=== PATIENT | female | born 1955 | race Caucasian/White ===

== ENCOUNTER → 2021-03-20 14:35 | Outpatient (CLI) | payer MEDICARE, OTHER, SELFPAY ==
[2021-03-20 17:01] LABS: Anion Gap 5 (5-15); BUN 14 mg/dL (7-18); BUN/Creat Ratio 20.4 RATIO (10-20); Calcium,Total 9.3 mg/dL (8.5-10.1); Chloride 105 mmol/L (98-107); Creatinine, Serum 0.69 mg/dL (0.55-1.02); EST Glomerular Filtration Rate 91 mL/min (>60); Est Glom Filt Rate - Afr Amer 111 mL/min (>60); Glucose 115 mg/dL (74-106); Potassium 3.9 mmol/L (3.5-5.1); Sodium Level 139 mmol/L (136-145)
== END ==
PROVIDERS: PCP Family Medicine
DX: I10 Essential (primary) hypertension (principal)
CPT/HCPCS: 36415; 80048

== ENCOUNTER 2021-05-08 10:16 | Outpatient (CLI) | payer MEDICARE, OTHER, SELFPAY ==
[2021-05-08 12:08] LABS: Hematocrit 41.1 % (37-47); Hemoglobin 13.7 g/dL (12.0-15.0); Mean Corp Hgb Conc 33.3 g/dL (32-36); Mean Corpuscular Hgb 29.5 pg (27.0-32.0); Mean Corpuscular Volume 88.4 fL (81-99); Mean Platelet Vol. 11.4 fl (6.2-12.0); Platelet Count 235 K/mm3 (150-450); RBC Distribution Width CV 13.4 % (11.6-14.6); RBC Distribution Width SD 43.1 fl (35.1-43.9); Red Blood Count 4.65 M/mm3 (4.2-5.4); White Blood Count 7.4 K/mm3 (4.4-11.0)
[2021-05-08 12:32] LABS: Microalbumin,Random Urine 6.9 mg/L (NO RANGE EST.)
[2021-05-08 12:37] LABS: ALB/GLOB Ratio 1.2 RATIO (0.9-2.4); AST(SGOT) 18 U/L (15-37); Alanine Aminotransfer ALT/SGPT 20 U/L (13-56); Albumin, Serum 3.8 g/dL (3.2-5.0); Alkaline Phosphatase 89 U/L (45-117); Anion Gap 6 (5-15); BUN 18 mg/dL (7-18); BUN/Creat Ratio 24.7 RATIO (10-20); Calcium,Total 8.9 mg/dL (8.5-10.1); Chloride 106 mmol/L (98-107); Creatinine, Serum 0.73 mg/dL (0.55-1.02); EST Glomerular Filtration Rate 85 mL/min (>60); Est Glom Filt Rate - Afr Amer 103 mL/min (>60); Globulin 3.2 g/dL (2.2-4.2); Glucose 133 mg/dL (74-106); Potassium 3.6 mmol/L (3.5-5.1); Sodium Level 138 mmol/L (136-145); T4 Free Direct 1.04 ng/dL (0.76-1.46); Thyroid Stim Hormone (TSH) 4.62 uIU/mL (0.358-3.74); Uric Acid 3.6 mg/dL (2.6-6.0)
== END 2021-05-08 23:59 | disposition home or self-care (01) ==
LOC: MFPLAB 10:20
PROVIDERS: PCP Family Medicine; Referring Provider Family Medicine; Visit Provider Family Medicine
DX: M10.9 Gout, unspecified (principal); E03.9 Hypothyroidism, unspecified; R09.89 Other specified symptoms and signs involving the circulatory and respiratory systems; I10 Essential (primary) hypertension
CPT/HCPCS: 36415; 80053; 82043; 82570; 84439; 84443; 84550; 85027

== ENCOUNTER → 2021-08-13 | Outpatient (CLI) | payer MEDICARE, OTHER, SELFPAY ==
[2021-08-13 10:47] LABS: T4 Free Direct 1.22 ng/dL (0.76-1.46); Thyroid Stim Hormone (TSH) 4.59 uIU/mL (0.358-3.74)
== END | disposition home or self-care (01) ==
LOC: MTLAB 08:37
PROVIDERS: PCP Family Medicine; Referring Provider Family Medicine; Visit Provider Family Medicine
DX: E03.9 Hypothyroidism, unspecified (principal)
CPT/HCPCS: 36415; 84439; 84443

== ENCOUNTER → 2022-04-15 | Outpatient (CLI) | payer MEDICARE, OTHER, SELFPAY ==
[2022-04-15 15:35] LABS: Absolute Lymphocyte Count 1.78 X10^3/uL (0.83-4.51); Absolute Neutrophil Count 5.7 X10^3/uL (2.0-7.7); Basophil# 0.07 X10^3/uL; Basophil% 0.9 % (0-1); Eosinophil# 0.05 X10^3/uL; Eosinophils% 0.6 % (0-5); Hemoglobin 14.1 g/dL (12.0-15.0); Lymphocyte # 1.78 X10^3/ul (0.83-4.51); Lymphocyte % 22.1 % (19-41); Mean Corp Hgb Conc 33.6 g/dL (32-36); Mean Corpuscular Hgb 28.8 pg (27.0-32.0); Mean Corpuscular Volume 85.9 fL (81-99); Mean Platelet Vol. 11.3 fl (6.2-12.0); Monocyte# 0.42 X10^3/uL; Monocyte% 5.2 % (0-10); NRBC Flagged by Analyzer 0 % (0-5); Neutrophil % 70.8 % (47-70); Platelet Count 261 K/mm3 (150-450); RBC Distribution Width CV 12.5 % (11.6-14.6); RBC Distribution Width SD 39.2 fl (35.1-43.9); Red Blood Count 4.89 M/mm3 (4.2-5.4); White Blood Count 8.1 K/mm3 (4.4-11.0)
[2022-04-15 16:08] LABS: Hemoglobin A1c 6.4 % (3.8-5.6)
[2022-04-15 16:10] LABS: ALB/GLOB Ratio 1.2 RATIO (0.9-2.4); AST(SGOT) 20 U/L (15-37); Alanine Aminotransfer ALT/SGPT 20 U/L (13-56); Albumin, Serum 4.1 g/dL (3.2-5.0); Alkaline Phosphatase 76 U/L (45-117); Anion Gap 10 (5-15); BUN 12 mg/dL (7-18); BUN/Creat Ratio 15.2 RATIO (10-20); Calcium,Total 9.7 mg/dL (8.5-10.1); Chloride 101 mmol/L (98-107); Creatinine, Serum 0.79 mg/dL (0.55-1.02); EST Glomerular Filtration Rate 78 mL/min (>60); Est Glom Filt Rate - Afr Amer 94 mL/min (>60); Globulin 3.3 g/dL (2.2-4.2); Glucose 133 mg/dL (74-106); Potassium 3.6 mmol/L (3.5-5.1); Protein, Total 7.4 g/dL (6.4-8.2); Sodium Level 136 mmol/L (136-145)
[2022-04-17 12:39] LABS: T4 Free Direct 1.42 ng/dL (0.76-1.46); Thyroid Stim Hormone (TSH) 2.71 uIU/mL (0.358-3.74)
[2022-04-24 05:07] LABS: Aldosterone, Serum 6.5 ng/dL (0.0-30.0)
[2022-04-24 12:33] LABS: Renin, Plasma 17.476 ng/mL/hr (0.167-5.380)
== END | disposition home or self-care (01) ==
LOC: MTLAB 12:43
PROVIDERS: PCP Family Medicine; Referring Provider Family Medicine; Visit Provider Family Medicine
DX: R09.89 Other specified symptoms and signs involving the circulatory and respiratory systems (principal); E11.8 Type 2 diabetes mellitus with unspecified complications; E03.9 Hypothyroidism, unspecified
CPT/HCPCS: 36415; 80053; 82088; 83036; 84244; 84439; 84443; 85025

== ENCOUNTER → 2022-04-17 | Outpatient (CLI) | payer MEDICARE, OTHER, SELFPAY ==
[2022-04-17 09:40] LABS: 24HR. Urine Creatinine 0.86 g/24 HR (0.70-1.90)
[2022-04-27 14:09] LABS: Cortisol, Urinary Free 7 ug/L (Undefined); Metanephrine, Ur 45 ug/L (Undefined); Metanephrines, 24Ur 113 ug/24 hr (36-209); Normetanephrines, 24Ur 325 ug/24 hr (131-612); Normetanephrines, Ur 130 ug/L (Undefined)
[2022-04-27 14:35] LABS: 5-HIAA, UR 1.6 mg/L (Undefined); Cortisol, Free 24Ur 18 ug/24 hr (6-42)
== END | disposition home or self-care (01) ==
PROVIDERS: PCP Family Medicine; Visit Provider Family Medicine
DX: R09.89 Other specified symptoms and signs involving the circulatory and respiratory systems (principal); E11.8 Type 2 diabetes mellitus with unspecified complications
CPT/HCPCS: 81050; 82530; 82570; 83497; 83835

== ENCOUNTER → 2022-05-05 | Outpatient (CLI) | payer MEDICARE, OTHER, SELFPAY ==
--- NOTE | 2022-05-05 08:56 | RDU_ITS ---
Reason For Study: Elevated renin plasma, suspected blockage of renal arteries Right Renal Artery Left Renal Artery Right renal artery ostium 55.6/12.7 Left renal artery ostium 90.6/26.7 RSV/EDV. PSV/EDV. Right renal artery proximal Left renal artery proximal PSV/EDV 97.9/32.1 PSV/EDV. 79.6/21.2 . Right renal artery mid 108.8/39.4 Left renal artery mid 86.9/24.8 PSV/EDV. PSV/EDV . Right renal artery distal Left renal artery distal 102.1/30.9 133.7/40.4 PSV/EDV. PSV/EDV. Right RAR 1.69. Left RAR 1.29. Right Renal Parenchyma Left Renal Parenchyma Upper Pole Medula 38.9/11.5 Left upper pole medulla 35.8/12.1 PSV/EDV. PSV/EDV . Right upper pole medulla EDR 0.3 . Left upper pole medulla EDR 0.3 . Right upper pole medulla R.I. Left upper pole medulla R.I. 0.66 . 0.70 . UP Cortex 24.8/8.4 PSV/EDV. Upper [place] Cortx 16.9/5.9 PSV/EDV. Left upper pole cortex EDR 0.3 . Right upper pole cortex EDR 0.3 . Left upper pole cortex R.I. 0.66 . Right upper pole cortex R.I. 0.65 . Left lower Pole medulla 34/12.1 Right lower Pole medulla 34.8/11.4 PSV/EDV . PSV/EDV . Left lower pole medulla EDR 0.4 . Right lower pole medulla EDR 0. . Left lower pole medulla R.I. 0.65 . Right lower pole medulla R.I. Lower Pole Cortx 18.4/8.4 PSV/EDV. 0.67 . Left lower pole cortex EDR 0.5 . Lower Pole Cortex 17.6/5.3 PSV/EDV. Left lower pole cortex R.I. 0.54 . Right lower pole cortex EDR 0.3 . Left Renal Hilar Right lower pole cortex R.I. 0.70 . LT Hilar avg 61.1/19.1 PSV/EDV . Right Renal Hilar Left hilar acceleration time 40 Right Hilar avg 85/22.8 PSV/EDV. m/sec. Right hilar acceleration time 50 Left Renal Dimensions m/sec. Left kidney size 9.74 cm . Right Renal Dimensions Left cortical dimension 1.90 cm . Right kidney size 10.20 cm . Right cortical dimension 1.92 cm . Aorta Proximal abdominal aorta 1.29 x 1.31 cm . Proximal abdominal aorta peak systolic velocity is 79 cm/sec . Distal abdominal aorta 1.33 x 1.37 cm . Distal abdominal aorta peak systolic velocity is 87.5 cm/sec . VL/Renal Artery Duplex Ultrasound Interpretation Summary Maximal diameter of the abdominal aorta is distally at 1.33 x 1.37 cm diameter which is normal Less than 60% stenosis bilateral renal arteries Maintained right renal length of 10.2 cm Maintained left renal length of 9.74 cm Normal renal resistive indices suggesting normal parenchymal function Ordering Physician: Stanley Yancey Referring Physician: Stanley Yancey Performed By: Karina Sosa RVT
== END | disposition home or self-care (01) ==
LOC: CVS 08:55
PROVIDERS: PCP Family Medicine; Referring Provider Family Medicine; Visit Provider Family Medicine
DX: R79.89 Other specified abnormal findings of blood chemistry (principal); I10 Essential (primary) hypertension
CPT/HCPCS: 93975

== ENCOUNTER 2022-06-28 09:00 | Outpatient (RCR) | payer MEDICARE, OTHER, SELFPAY ==
--- NOTE | 2022-06-23 10:53 | HP.OTEVAL ---
Patient's Visit Information BOBBY SNYDER is a 67 year old F, referred to Occupational Therapy by Dr. Stanley Yancey MD, with a diagnosis of CTS, postural changes,. Date of Evaluation: 06/23/22 Occupational Therapist: Kae Pearson, OTILIA/Bernabe, CHT - Subjective This 67 year old female was seen for OT eval with dx of CTS, and hx of CTR in 2017. pt states when she wakes up in am her hand does not want to move - pt states can not make a fist, weakness, pain in her hand and around her thumb/MF and palm of her hand, pt states she does try to wash her hand in warm water- states massaging her hand will help some. pt states holding a book up to read both hands will go numb ( left hand get numb in bed). pt states she noticed pain when doing her elliptical- pt states she does pull a lot with her hands and this was when she noticed increase soreness in right hand and cramping. - ADLs Miscellaneous: Write Comments: walk dog, exercise on elliptical - Pain right hand 3 Pain Intensity Range: 3, 4 - ROM Wrist: right 40/60 left 60/60 CMC: right 10 left 15 MP: right 45 left 50 IP: right 55 left 65 Radial Abduction: right 35 left 35 Opposition: Kapandji opposition scale right 8 left 10 ROM Comments: right light composite fist 1cm away from tight fist. left full tight composite fist. pt demo poor sitting posture - Strength Underground Utility Locator: right 5# left 35# Lateral Pinch: right 4# left 10# Tripod Pinch: right unable left 10# Tip-to-Tip Pinch: right unable left 6# Strength Comments: with resistive pinch left thumb demo CMC and MP instability ( question cmc OA). pt demo with decrease in right intellectual property lawyer/pinch strength - Sensation Sensation Comments: denies at this time-. pt states at night when reading at night - Quick DASH-Disab of Arm,Shoulder& Hand Quick DASH Score: 47.7250 - Goals Goal:ROM equal to unaffected hand: Yes Goal:Underground Utility Locator/Pinch strength at least 75% of unaffected hand: Yes Goal:No pain with affected hand use: Yes Goal:Full use of affected hand in daily activities including: Yes Other Goal: Pt will demo understanding of joint protection and ergonomics when performing BADLs and IADLs by d/c. Pt will demo understanding of adaptive Equipment use to decrease stress on joints to allow pt to perform BADSL and IADLS at ESTEVAN level. - Rehabilitation General Assessment: pt demo with weakness and pain of right intellectual property lawyer/pinch, tingling in bilateral hands with positioning (reading)- pt also demo limited right composite fist increasing difficulty with ADls and IADLs. pt would benefit from skilled OT services to ed, pt on CTS, joint protection yobani. and ad. yobani. to decrease pain but allow pt to continue her exercising. Today therapist ed. pt on dx., and was given information on joint protection yobani. pt was receptive and demo understanding and agree to POC. Rehabilitation Potential: Good - Anticipated Interventions A/AAROM/PROM, Strengthening, Modalities, Orthoses, Joint Protection/Energy Conservation, Ergonomic Education, Fine Motor Coord/Berry - Visit Plan Frequency: 2x /Week Duration: 4 Weeks General Plan: ed. on joint protection yobani. transition in UB free wt. ex. HEP. postural correction yobani. use of ad. eq. as needed TEXT: Thank you for the opportunity to evaluate your patient. For Medicare and Medicare HMO plans, please review the plan of care and approve it. It will need to be FAXED BACK to us at [phone] for Medicare purposes. Please let me know if there are questions or concerns regarding this plan of care. Physician Signature: Date:
--- NOTE | 2022-08-19 13:24 | HP.OT.NRP ---
Patient Information Patient Information: BOBBY SNYDER was seen in my office for initial evaluation on 06/23/22. The following Plan of Care was established for this patient: POC Established Initial Frequency: 2x /Week Initial Duration: 4 Weeks Plan: Continue POC: 4 weeks (2x week) Anticipated Interventions Anticipated Interventions: A/AAROM/PROM, Strengthening, Modalities, Orthoses, Joint Protection/Energy Conservation, Ergonomic Education and Fine Motor Coord/Berry Last Seen Last Seen: This patient was last seen in our office 06/28/22. Pertinent comments regarding their Occupational therapy will appear below: pt was seen for 2 OT sessions and at this time due to time lapse in services pt d.c. At this point I will be discontinuing this patient from occupational therapy. I would be happy to see this patient again in the future if found appropriate by the physician. Thank you! Kae Pearson, OTR/L, CHT
== END 2022-06-28 19:00 | disposition home or self-care (01) ==
LOC: OT 09:00
PROVIDERS: PCP Family Medicine; Referring Provider Family Medicine; Visit Provider Family Medicine
DX: G56.00 Carpal tunnel syndrome, unspecified upper limb (principal); M17.9 Osteoarthritis of knee, unspecified; F41.9 Anxiety disorder, unspecified
CPT/HCPCS: 97110; 97166; 97530

== ENCOUNTER → 2022-07-05 | Outpatient (CLI) | payer MEDICARE, OTHER, SELFPAY ==
[2022-07-05 12:39] LABS: Hemoglobin A1c 6.2 % (3.8-5.6)
[2022-07-05 12:51] LABS: Cholesterol 271 mg/dL (200); High Density Lipoprotein 57 mg/dL; Triglycerides 312 mg/dL; Very Low Density Lipoprotein 62 mg/dL (5-40)
== END | disposition home or self-care (01) ==
LOC: BIMLAB 09:17
PROVIDERS: PCP Internal Medicine; Referring Provider Internal Medicine; Visit Provider Internal Medicine
DX: E11.9 Type 2 diabetes mellitus without complications (principal)
CPT/HCPCS: 36415; 80061; 83036

== ENCOUNTER → 2022-10-06 | Outpatient (CLI) | payer MEDICARE, OTHER, SELFPAY ==
[2022-10-06 13:13] LABS: Microalbumin,Random Urine < 5.0 mg/L (NO RANGE EST.)
[2022-10-06 13:24] LABS: Anion Gap 8 (5-15); BUN 14 mg/dL (7-18); BUN/Creat Ratio 19.4 RATIO (10-20); Calcium,Total 9.3 mg/dL (8.5-10.1); Chloride 104 mmol/L (98-107); Creatinine, Serum 0.72 mg/dL (0.55-1.02); EST Glomerular Filtration Rate 86 mL/min (>60); Est Glom Filt Rate - Afr Amer 104 mL/min (>60); Glucose 138 mg/dL (74-106); Potassium 3.8 mmol/L (3.5-5.1); Sodium Level 138 mmol/L (136-145)
[2022-10-12 13:07] LABS: ALDOSTERONE/RENIN RATIO 0.7 (0.0-30.0); Aldosterone, Serum 5.7 ng/dL (0.0-30.0); Renin, Plasma 7.833 ng/mL/hr (0.167-5.380)
== END | disposition home or self-care (01) ==
LOC: BIMLAB 10:54
PROVIDERS: PCP Internal Medicine; Visit Provider Internal Medicine
DX: I10 Essential (primary) hypertension (principal)
CPT/HCPCS: 36415; 80048; 82043; 82088; 82570; 84244

== ENCOUNTER → 2022-12-21 | Outpatient (CLI) | payer MEDICARE, OTHER, SELFPAY | END | disposition home or self-care (01) | LOC: LAB 15:02 | PROVIDERS: PCP Internal Medicine; Visit Provider Internal Medicine | DX: A04.72 Enterocolitis due to Clostridium difficile, not specified as recurrent (principal) | CPT/HCPCS: 87493 ==

== ENCOUNTER → 2023-01-13 | Outpatient (CLI) | payer MEDICARE, OTHER, SELFPAY | END | disposition home or self-care (01) | LOC: LABSPEC 11:53 | PROVIDERS: PCP Internal Medicine; Referring Provider Physician Assistant; Visit Provider Physician Assistant | DX: R19.7 Diarrhea, unspecified (principal) | CPT/HCPCS: 87493 ==

== ENCOUNTER → 2023-03-25 | Outpatient (CLI) | payer MEDICARE, OTHER, SELFPAY ==
[2023-03-25 12:10] LABS: Absolute Lymphocyte Count 1.82 X10^3/uL (0.83-4.51); Absolute Neutrophil Count 5.4 X10^3/uL (2.0-7.7); Basophil# 0.09 X10^3/uL; Basophil% 1.1 % (0-1); Eosinophil# 0.15 X10^3/uL; Eosinophils% 1.9 % (0-5); Hematocrit 42.5 % (37-47); Hemoglobin 13.8 g/dL (12.0-15.0); Lymphocyte # 1.82 X10^3/ul (0.83-4.51); Lymphocyte % 22.9 % (19-41); Mean Corp Hgb Conc 32.5 g/dL (32-36); Mean Corpuscular Volume 86.4 fL (81-99); Mean Platelet Vol. 11.2 fl (6.2-12.0); Monocyte# 0.43 X10^3/uL; Monocyte% 5.4 % (0-10); NRBC Flagged by Analyzer 0 % (0-5); Neutrophil # 5.42 X10^3/uL (2.7-7.7); Neutrophil % 68.1 % (47-70); Platelet Count 321 K/mm3 (150-450); RBC Distribution Width CV 12.8 % (11.6-14.6); Red Blood Count 4.92 M/mm3 (4.2-5.4)
[2023-03-25 12:37] LABS: ALB/GLOB Ratio 1.1 RATIO (0.9-2.4); AST(SGOT) 12 U/L (15-37); Alanine Aminotransfer ALT/SGPT 23 U/L (13-56); Albumin, Serum 3.9 g/dL (3.2-5.0); Alkaline Phosphatase 82 U/L (45-117); Anion Gap 6 (5-15); BUN 17 mg/dL (7-18); BUN/Creat Ratio 22.2 RATIO (10-20); Calcium,Total 9.4 mg/dL (8.5-10.1); Chloride 106 mmol/L (98-107); Cholesterol 261 mg/dL (200); Creatinine, Serum 0.76 mg/dL (0.55-1.02); EST Glomerular Filtration Rate 80 mL/min (>60); Est Glom Filt Rate - Afr Amer 97 mL/min (>60); Globulin 3.4 g/dL (2.2-4.2); Glucose 145 mg/dL (74-106); High Density Lipoprotein 61 mg/dL; Potassium 3.8 mmol/L (3.5-5.1); Protein, Total 7.3 g/dL (6.4-8.2); Sodium Level 140 mmol/L (136-145); T4 Free Direct 1.21 ng/dL (0.76-1.46); Thyroid Stim Hormone (TSH) 3.18 uIU/mL (0.358-3.74); Triglycerides 122 mg/dL; Very Low Density Lipoprotein 24 mg/dL (5-40)
== END | disposition home or self-care (01) ==
LOC: BIMLAB 10:04
PROVIDERS: PCP Internal Medicine; Referring Provider Internal Medicine; Visit Provider Internal Medicine
DX: I10 Essential (primary) hypertension (principal)
CPT/HCPCS: 36415; 80053; 80061; 84439; 84443; 85025

== ENCOUNTER → 2023-04-14 | Outpatient (CLI) | payer MEDICARE, OTHER, SELFPAY ==
--- OUTSIDE RECORDS SUMMARY | 2023-04-14 20:58 | XMS RPT_ITS | CCD ---
Author Name Unknown Address [address] [place] [address] Organization [facility] Care Team Providers Care Financial Retirement Plan Specialist Name Role Phone Yashira Yancey MD Primary Care Provider ROMI GRIMM Attending Unavailable YASHIRA YANCEY Primary Care Unavailable DHEERAJ PHILLIPS Attending Unavailable YASHIRA YANCEY Primary Care Unavailable MICHELLE DICK Attending Unavailable YASHIRA YANCEY Primary Care Unavailable MICHELLE DICK Attending Unavailable YASHIRA YANCEY Primary Care Unavailable Allergies Allergy Classification Reported Allergen(s) Allergy Type Date of Onset Reaction(s) Facility (6 sources) Penicillins; Translations: [PENICILLINS] Drug Allergy 05-27-2022 Hives [facility] (1 source) amLODIPine Drug Allergy 03-04-2020 Other: See Comments [facility] (1 source) Atenolol Drug Allergy 04-22-2008 Intolerance, Other: See Comments [facility] (1 source) Citalopram Drug Allergy 02-03-2009 Myalgia [facility] (1 source) Meperidine Drug Allergy 04-22-2008 Other: See Comments [facility] (1 source) metFORMIN Drug Allergy 07-18-2018 GI Upset [facility] (1 source) Simvastatin Drug Allergy 07-18-2018 Other: See Comments [facility] Medications Completed/Discontinued Medications Medication Drug Class(es) Dates Sig (Normalized) Sig (Original) Allopurinol (5 sources) Xanthine Oxidase Inhibitor ALLOPURINOL ORAL Omar e by mouth. 0 Active Problems Problem Classification Problem Date Documented Da te Episodic/Chronic Other female genital disorders (1 source) Pruritus of vagina; Translations: [Other specified noninflammatory disorders of vagina] Episodic Other female genital disorders (1 source) Cyst of vulva; Translations: [Vulvar cyst] 12-31-2022 Episodic Other inflammatory condition of skin (2 sources) Pruritus of vulva; Translations: [Pruritus vulvae] Episodic Other screening for suspected conditions (not mental disorders or infectious disease) (2 sources) Patient encounter status; Translations: [Encounter for screening for malignant neoplasm of cervix] Episodic Other skin disorders (2 sources) Lichen sclerosus et atrophicus; 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 Superficial injury; contusion (1 source) Blister of vulva without infection; Translations: [Blister (nonthermal) of vagina and vulva, initial encounter] 12-17-2022 Episodic Results Test Name Value Interpretation Reference Range Facil ity Vital Signs Date Time Vital Sign Value Performing Clinician Stevei litdawson 12-31-2022 09:26-0500 Body weight 72.12 kg Romi Grimm MD Work Phone: [facility] 12-31-2022 09:26-0500 Diastolic blood pressure 72 mm[Hg] Romi Grimm MD Work Phone: [facility] 12-31-2022 09:26-0500 Systolic blood pressure 126 mm[Hg] Romi Grimm MD Work Phone: [facility] 12-17-2022 10:27-0400 Body weight 72.3 kg Dheeraj Phillips APRN.CNM Work Phone: [facility] 12-17-2022 10:27-0400 Diastolic blood pressure 74 mm[Hg] Dheeraj Phillips APRN.CNM Work Phone: [facility] 12-17-2022 10:27-0400 Systolic blood pressure 132 mm[Hg] Dheeraj Phillips APRN.CNM Work Phone: [facility] 06-03-2022 08:41-0400 Body weight 76.48 kg Michelle Dick MD Work Phone: [facility] 06-03-2022 08:41-0400 Diastolic blood pressure 92 mm[Hg] Michelle Dick MD Work Phone: [facility] 06-03-2022 08:41-0400 Systolic blood pressure 138 mm[Hg] Michelle Dick MD Work Phone: [facility] 05-27-2022 08:43-0400 Body height 160 cm Michelle Dick MD Work Phone: [facility] 05-27-2022 08:43-0400 Body weight 76.66 kg Michelle Dick MD Work Phone: [facility] 05-27-2022 08:43-0400 Diastolic blood pressure 80 mm[Hg] Michelle Dick MD Work Phone: [facility] 05-27-2022 08:43-0400 Systolic blood pressure 160 mm[Hg] Michelle Dick MD Work Phone: [facility] Encounters Encounter Date Encounter Type Care Provider Facility Start: 12-31-2022 End: 12-31-2022 ambulatory ROMI GRIMM Facility:[facility] Start: 12-31-2022 End: 12-31-2022 Patient encounter procedure Romi Grimm MD Work Phone: OB/Gynecology Procedures Date Procedure Procedure Detail Performing Clinician Start: 10-02-2020 Lipid 1996 panel - S bahman or Plasma Dheeraj Phillips APRN.CNM Work Phone: Start: 08-15-2017 Mammography Michelle hatfield MD Work Phone: Plan of Treatment Date Care Activity Detail Author Start: 10-02-2025 Lipid 1996 panel - Serum or Plasma Lipid Screening [facility] Start: 10-02-2025 LIPID SCREEN LIPID SCREEN [facility] Start: 10-03-2023 Diabetes Screening Diabetes Screening [facility] Start: 10-15-2022 Covid-19 Vaccine ( season) Covid-19 Vaccine ( season) [facility] Start: 10-15-2022 Influenza vaccination Influenza Vaccine (#1) [facility] Start: 02-14-2022 ADVANCE DIRECTIVE DISCUSSION ADVANCE DIRECTIVE DISCUSSION [facility] Start: 02-14-2022 DEPRESSION ASSESSMENT DEPRESSION ASSESSMENT [facility] Start: 02-07-2021 BONE DENSITY BONE DENSITY [facility] Start: 02-07-2021 Bone Density Screening Bone Density Screening [facility] Start: 02-07-2021 Pneumococcal Vaccine: 65+ (2 - PCV) Pneumococcal Vaccine: 65+ (2 - PCV) [facility] Start: 02-07-2021 PNEUMOCOCCAL: 65+ (1 - PCV) PNEUMOCOCCAL: 65+ (1 - PCV) [facility] Start: 08-15-2018 Mammography [facility] Start: 2016 RSV Vaccine (1 - 1-dose 60+ series) RSV Vaccine (1 - 1-dose 60+ series) [facility] Start: 02-07-2006 SHINGRIX VACCINE (1 of 2) SHINGRIX VACCINE (1 of 2) [facility] Start: 02-07-2001 COLOGUARD (FIT-DNA) COLOGUARD (FIT-DNA) [facility] Start: 02-07-2001 Colonoscopy COLONOSCOPY [facility] Start: 02-07-2001 COLORECTAL CANCER SCREENING COLORECTAL CANCER SCREENING [facility] Start: 02-07-[address] COLONOGRAPHY [facility] Start: 02-07-2001 DIABETES SCREEN DIABETES SCREEN [facility] Start: 02-07-2001 Diabetes Screening Diabetes Screening [facility] Start: 02-07-2001 FECAL OCCULT BLOOD FECAL OCCULT BLOOD [facility] Start: 02-07-2001 SIGMOIDOSCOPY SIGMOIDOSCOPY [facility] Start: 02-07-1975 Urine microalbumin profile [facility] Start: 02-07-1974 HEPATITIS C SCREENING HEPATITIS C SCREENING [facility] Biopsy vulva/perineu m 1 lesion spx BIOPSY OF VULVA Procedures Routine Lichen sclerosus et atrophicus Vulvar itching Ordered: 05/27/2022 [facility] Work Phone: Immunizations Immunization Date Immunization Notes Care Provider Fa maryann 12-11-2021 influenza virus vacc ine, unspecified formulation Dheeraj Phillips APRN.CNM Work Phone: [facility] Payers Date Payer Category Payer Private Health Insurance [facility] AARP SUPPLEMENT [id number] 2021-Present [phone] [address] [place] [address] Indemnity [id number] 2021 Unknown [id number] 2021 Medicare MEDICARE MEDICAR E A AND B [id number] 2021-Present [phone] [place] [address] Medicare [id number] 2021 Medicare [id number] Social History Date Type Detail Facility Start: 05-27-2022 Tobacco smoking stat us NHIS Never smoked tobacco [facility] Start: 05-27-2022 Tobacco use and exposure Smoke less tobacco non-user [facility] Start: 05-27-2022 End: 12-31-2022 Alcohol intake Ex-drinker (finding) [facility] Start: 1955 Sex Assigned At Not on file [facility] Start: 12-17-2022 End: 12-31-2022 History of Social function [facility] Start: 12-17-2022 End: 12-31-2022 Tobacco use panel [facility] National Score (1-10 0), lower number is lower risk 51 [facility] Clinical Notes 05-27-2022 to 12-31-2022 Romi Grimm MD - 12/31/2022 9:19 AM Dheeraj Ha APRN.CNM - 12/17/2022 10:21 AM EDTTelephone Encounter - Lynn Gonzalez LPN - 06/03/2022 1:27 PM EDTPatient Instructions Note Date & Type Note Facility 12-31-2022 Note HNO ID: [id number] Author: Romi Grimm MD Service: ? Author Type: Physician Type: Progress Notes Filed: 12/31/2022 9:58 AM Note Text: Justine Proctor is a 67 year old female who presents for problem visit for c/o bleeding from tuna purse seiner area. HPI: 67 YOF w/' small amount of light spotting this week 5 days ago. No pain. Then yesterday reurred and small amount of spotting and when blotting noted it was from left labia. Very small amount. 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: Sexual Activity: Yes; Male Contraception: No contraception data on record PAST MEDICAL HISTORY Diagnosis Date Diabetes mellitus (HCC) Type II - diet controlled High blood pressure Lichen sclerosus PAST SURGICAL HISTORY Procedure Laterality Date DANDC, DIAG AND/OR THERAPEUTIC Menorrhagia - Anemia HYSTEROSCOPY ENDOMETRIAL ABLATION REMOVAL GALLBLADDER REVISE MEDIAN N/CARPAL TUNNEL SURG Right FAMILY HISTORY Problem Relation Age of Onset other (CLL) Brother Heart Brother Social History Tobacco Use Smoking status: Never Smokeless tobacco: Never Vaping Use Vaping Use: Never used Substance Use Topics Alcohol use: Not Currently Drug use: Never Current Outpatient Medications Medication Sig MAGNESIUM GLYCINATE ORAL Take by mouth. clobetasol (TEMOVATE) 0.05 % ointment Apply to affected area twice daily. For 2 weeks. Then daily for 2 weeks. Then slowly decrease to daily 2-3 times per week ongoing. ramipril (ALTACE) 10 mg capsule Take 10 mg by mouth once daily. ALLOPURINOL ORAL Take by mouth. cholecalciferol, vitamin D3, (VITAMIN D3 ORAL) Take by mouth. TURMERIC ORAL Take by mouth. ZINC ORAL Take by mouth. fexofenadine HCl (NANCY ORAL) Take by mouth. MAGNESIUM CITRATE ORAL Take by mouth. (Patient not taking: Reported on 06/03/2022) No current facility-administered medications for this visit. Allergies As of Date: 12/31/2022 Allergen Noted Reaction AMLODIPINE 03/04/2020 Other: See Comments ATENOLOL 04/22/2008 Intolerance and Other: See Comments CITALOPRAM 02/03/2009 Myalgia MEPERIDINE 04/22/2008 Other: See Comments METFORMIN 07/18/2018 GI Upset PENICILLINS 05/27/2022 Hives SIMVASTATIN 07/18/2018 Other: See Comments Fully Assessed 12/31/2022 REVIEW OF SYSTEMS Abdomen: No bloating, early satiety, indigestion, or increased flatulence. No abdominal pain, nausea, vomiting, diarrhea, or constipation. Bladder: No dysuria, gross hematuria, urinary frequency, urinary urgency, or incontinence. Allergies and current medication updated:Yes EXAM: BP 126/72 Wt 159 lb (72.1kg) GENERAL: pleasant, anxious female PELVIC: external genitalia with 2 small red inclusion cysts, one on right labia nad one on left, not currently open. Some thin white skin c/w lichen sclerosis, no fissures or lesions or hyperpigmentation. Normal Bartholin's glands, urethra, [place]'s glands, no vulvar lesions, no cervical lesions, good vaginal support, nonfriable cervix, thin atrophic vagina w/ scant discharge, normal appearing perineal body and perianal region BIMANUAL: uterus normal size, shape and consistency, no adnexal masses, and non-tender ASSESSMENT AND PLAN: small vulvar inclusion cyst as source of bleeding, healed and scabbed over now. If other issue let us know. Lichen sclerosis noted, cont. current meds Romi Grimm MD [facility] 12-31-2022 History of Presen t illness Narrative Justine Proctor is a 67 year old female who presents for problem visit for c/o bleeding from tuna purse seiner area. HPI: 67 YOF w/' small amount of light spotting this week 5 days ago. No pain. Then yesterday reurred and small amount of spotting and when blotting noted it was from left labia. Very small amount. 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: Sexual Activity: Yes; Male Contraception: No contraception data on record PAST MEDICAL HISTORY Diagnosis Date Diabetes mellitus (HCC) Type II - diet controlled High blood pressure Lichen sclerosus PAST SURGICAL HISTORY Procedure Laterality Date D&C, DIAG AND/OR THERAPEUTIC Menorrhagia - Anemia HYSTEROSCOPY ENDOMETRIAL ABLATION REMOVAL GALLBLADDER REVISE MEDIAN N/CARPAL TUNNEL SURG Right FAMILY HISTORY Problem Relation Age of Onset other (CLL) Brother Heart Brother Social History Tobacco Use Smoking status: Never Smokeless tobacco: Never Vaping Use Vaping Use: Never used Substance Use Topics Alcohol use: Not Currently Drug use: Never Current Outpatient Medications Medication Sig MAGNESIUM GLYCINATE ORAL Take by mouth. clobetasol (TEMOVATE) 0.05 % ointment Apply to affected area twice daily. For 2 weeks. Then daily for 2 weeks. Then slowly decrease to daily 2-3 times per week ongoing. ramipril (ALTACE) 10 mg capsule Take 10 mg by mouth once daily. ALLOPURINOL ORAL Take by mouth. cholecalciferol, vitamin D3, (VITAMIN D3 ORAL) Take by mouth. TURMERIC ORAL Take by mouth. ZINC ORAL Take by mouth. fexofenadine HCl (NANCY ORAL) Take by mouth. MAGNESIUM CITRATE ORAL Take by mouth. (Patient not taking: Reported on 06/03/2022) No current facility-administered medications for this visit. Allergies As of Date: 12/31/2022 Allergen Noted Reaction AMLODIPINE 03/04/2020 Other: See Comments ATENOLOL 04/22/2008 Intolerance and Other: See Comments CITALOPRAM 02/03/2009 Myalgia MEPERIDINE 04/22/2008 Other: See Comments METFORMIN 07/18/2018 GI Upset PENICILLINS 05/27/2022 Hives SIMVASTATIN 07/18/2018 Other: See Comments Fully Assessed 12/31/2022 REVIEW OF SYSTEMS Abdomen: No bloating, early satiety, indigestion, or increased flatulence. No abdominal pain, nausea, vomiting, diarrhea, or constipation. Bladder: No dysuria, gross hematuria, urinary frequency, urinary urgency, or incontinence. Allergies and current medication updated:Yes EXAM: BP 126/72 Wt 159 lb (72.1kg) GENERAL: pleasant, anxious female PELVIC: external genitalia with 2 small red inclusion cysts, one on right labia nad one on left, not currently open. Some thin white skin c/w lichen sclerosis, no fissures or lesions or hyperpigmentation. Normal Bartholin's glands, urethra, [place]'s glands, no vulvar lesions, no cervical lesions, good vaginal support, nonfriable cervix, thin atrophic vagina w/ scant discharge, normal appearing perineal body and perianal region BIMANUAL: uterus normal size, shape and consistency, no adnexal masses, and non-tender ASSESSMENT AND PLAN: small vulvar inclusion cyst as source of bleeding, healed and scabbed over now. If other issue let us know. Lichen sclerosis noted, cont. current meds Romi Grimm MD documented in this encounter [facility] 12-17-2022 Note HNO ID: [id number] Author: Dheeraj Phillips APRN.CNM Service: ? Author Type: Glove Turner And Former Automatic Type: Progress Notes Filed: 12/17/2022 5:06 PM Note Text: Justine Proctor is a 67 year old female who presents for problem visit vulvar bump HPI: Patient presents today with lump on vulva. No new lotions, soaps, or products. , no concerns for STD. States it was like a blister filled with blood then turned black. 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: Sexual Activity: Yes; Male Contraception: No contraception data on record PAST MEDICAL HISTORY Diagnosis Date Diabetes mellitus (HCC) Type II - diet controlled High blood pressure Lichen sclerosus PAST SURGICAL HISTORY Procedure Laterality Date DANDC, DIAG AND/OR THERAPEUTIC Menorrhagia - Anemia HYSTEROSCOPY ENDOMETRIAL ABLATION REMOVAL GALLBLADDER REVISE MEDIAN N/CARPAL TUNNEL SURG Right FAMILY HISTORY Problem Relation Age of Onset other (CLL) Brother Heart Brother Social History Tobacco Use Smoking status: Never Smokeless tobacco: Never Vaping Use Vaping Use: Never used Substance Use Topics Alcohol use: Not Currently Drug use: Never Current Outpatient Medications Medication Sig MAGNESIUM GLYCINATE ORAL Take by mouth. clobetasol (TEMOVATE) 0.05 % ointment Apply to affected area twice daily. For 2 weeks. Then daily for 2 weeks. Then slowly decrease to daily 2-3 times per week ongoing. ramipril (ALTACE) 10 mg capsule Take 10 mg by mouth once daily. ALLOPURINOL ORAL Take by mouth. cholecalciferol, vitamin D3, (VITAMIN D3 ORAL) Take by mouth. TURMERIC ORAL Take by mouth. ZINC ORAL Take by mouth. fexofenadine HCl (NANCY ORAL) Take by mouth. MAGNESIUM CITRATE ORAL Take by mouth. (Patient not taking: Reported on 06/03/2022) No current facility-administered medications for this visit. Allergies As of Date: 12/17/2022 Allergen Noted Reaction PENICILLINS 05/27/2022 Hives Fully Assessed 12/17/2022 REVIEW OF SYSTEMS Abdomen: No bloating, early satiety, indigestion, or increased flatulence. No abdominal pain, nausea, vomiting, diarrhea, or constipation. Bladder: No dysuria, gross hematuria, urinary frequency, urinary urgency, or incontinence. Breast: No breast lumps, nipple d/c, overlying skin changes, redness or skin retraction. Expanded ROS: N/A Allergies and current medication updated:Yes EXAM: BP 132/74 Wt 159 lb 6.4 oz (72.3kg) GENERAL: pleasant, female in no apparent distress HEENT: Normocephalic and atraumatic PELVIC: external genitalia normal, normal Bartholin's glands, urethra, [place]'s glands, no cervical lesions, good vaginal support, physiologic discharge present, normal appearing perineal body and perianal region. Small blood blister with scab under skin. NEURO: alert and oriented x3,exam grossly non-focal EXTREMITIES: normal ASSESSMENT AND PLAN: 1. Blister of vulva without infection, initial encounter - ICD9: 911.2, ICD10: S30.824 Reviewed with patient blood blister present with prior trauma. No concerns at this time and to follow up if not resolved. Reassurance offered. Dheeraj Phillips APRN.[facility] 12-17-2022 History of Presen t illness Narrative Justine Proctor is a 67 year old female who presents for problem visit vulvar bump HPI: Patient presents today with lump on vulva. No new lotions, soaps, or products. , no concerns for STD. States it was like a blister filled with blood then turned black. 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: Sexual Activity: Yes; Male Contraception: No contraception data on record PAST MEDICAL HISTORY Diagnosis Date Diabetes mellitus (HCC) Type II - diet controlled High blood pressure Lichen sclerosus PAST SURGICAL HISTORY Procedure Laterality Date D&C, DIAG AND/OR THERAPEUTIC Menorrhagia - Anemia HYSTEROSCOPY ENDOMETRIAL ABLATION REMOVAL GALLBLADDER REVISE MEDIAN N/CARPAL TUNNEL SURG Right FAMILY HISTORY Problem Relation Age of Onset other (CLL) Brother Heart Brother Social History Tobacco Use Smoking status: Never Smokeless tobacco: Never Vaping Use Vaping Use: Never used Substance Use Topics Alcohol use: Not Currently Drug use: Never Current Outpatient Medications Medication Sig MAGNESIUM GLYCINATE ORAL Take by mouth. clobetasol (TEMOVATE) 0.05 % ointment Apply to affected area twice daily. For 2 weeks. Then daily for 2 weeks. Then slowly decrease to daily 2-3 times per week ongoing. ramipril (ALTACE) 10 mg capsule Take 10 mg by mouth once daily. ALLOPURINOL ORAL Take by mouth. cholecalciferol, vitamin D3, (VITAMIN D3 ORAL) Take by mouth. TURMERIC ORAL Take by mouth. ZINC ORAL Take by mouth. fexofenadine HCl (NANCY ORAL) Take by mouth. MAGNESIUM CITRATE ORAL Take by mouth. (Patient not taking: Reported on 06/03/2022) No current facility-administered medications for this visit. Allergies As of Date: 12/17/2022 Allergen Noted Reaction PENICILLINS 05/27/2022 Hives Fully Assessed 12/17/2022 REVIEW OF SYSTEMS Abdomen: No bloating, early satiety, indigestion, or increased flatulence. No abdominal pain, nausea, vomiting, diarrhea, or constipation. Bladder: No dysuria, gross hematuria, urinary frequency, urinary urgency, or incontinence. Breast: No breast lumps, nipple d/c, overlying skin changes, redness or skin retraction. Expanded ROS: N/A Allergies and current medication updated:Yes EXAM: BP 132/74 Wt 159 lb 6.4 oz (72.3kg) GENERAL: pleasant, female in no apparent distress HEENT: Normocephalic and atraumatic PELVIC: external genitalia normal, normal Bartholin's glands, urethra, [place]'s glands, no cervical lesions, good vaginal support, physiologic discharge present, normal appearing perineal body and perianal region. Small blood blister with scab under skin. NEURO: alert and oriented x3,exam grossly non-focal EXTREMITIES: normal ASSESSMENT AND PLAN: 1. Blister of vulva without infection, initial encounter - ICD9: 911.2, ICD10: S30.824 Reviewed with patient blood blister present with prior trauma. No concerns at this time and to follow up if not resolved. Reassurance offered. Dheeraj Phillips APRN.CNM documented in this encounter [facility] 06-03-2022 Miscellaneous Notes Spoke with pt and notified her that Dr Dick had no new instructions for her. Pt voiced understanding and had no further questions. Lynn Gonzalez LPN Noted & agree with recommendations Michelle Dick MD Pt called the office and stated that she is having active bright red bleeding from the biopsy site from earlier this morning. She stated that she had been doing some light yard work following her appointment. She noted when she wiped after voiding. Pt was encouraged to apply some gauze to the area to apply pressure, using caution when wiping after she voids and only blot the area. Please advise how to proceed from here. Pt did stated that she has not had to change her pad d/t the bleeding. Lynn Gonzalez LPN documented in this encounter [facility] 06-03-2022 Note HNO ID: [id number] Author: Michelle Dick MD Service: ? Author Type: Physician Type: Progress Notes Filed: 06/03/2022 9:08 AM Note Text: Justine Proctor is a 67 year old female who presents today for a vulvar biopsy. Indication: persistent pruritis. UNIVERSAL PROTOCOL / SAFETY CHECKLIST Procedure to be Performed: Vulvar Biopsy Sign In: A Moment of CARE was completed. Personnel directly involved with the procedure wore the appropriate PPE (Personal Protective Equipment). Patient/Surrogate Stated/Verified: PATIENT VERIFIED(optional for EMERGENT procedures): Patient name, Date of , Relevant allergies, and The intended procedure Time Out Communication: Intended patient and procedure match the source documents. Consent documented and matches the intended procedure. Sign Out: SIGN OUT (optional for EMERGENT procedures): All specimen containers correctly labeled. All instruments, equipment, possible retained foreign bodies accounted for. Post-procedure follow-up management communicated and Plan of Care Visit completed when applicable. PROCEDURE NOTE: GROSS LESIONS: No BIOPSY: Area was cleansed with betadine and anesthetized with 3mL 1% lidocaine with 1:100,000 epi. 4mm Tara punch used to biopsy region. HEMOSTASIS: Obtained with silver nitrate and pressure Procedure Summary: Patient tolerated procedure well. ASSESSMENT: Lichen sclerosus PLAN: Specimens labeled and sent to Pathology. Will notify patient of results in 1-2 weeks. Post-procedure instructions reviewed and written material given to the patient. Rx clobetasol ointment given AND use reviewed Michelle Dick MD [facility] 06-03-2022 Nurse Note I was present during the patient's exam by Dr. Dick. Rosi Rico MA documented in this encounter [facility] 06-03-2022 Instructions Michelle Dick MD - 06/03/2022 8:34 AM EDT VULVAR BIOPSY PATIENT INSTRUCTIONS Many conditions may cause your pm technician to suggest a vulvar biopsy including vulvar itching unresponsive to therapy, ulcerated lesions, pigmented lesions, and tumors. The biopsy result will assist your pm technician to devise a treatment plan suitable to your condition. 1. Usually, there is a local discomfort, swelling, and skin discoloration. Using cold compresses overnight usually alleviates the discomfort considerably. Warm compresses thereafter can be used as needed. Prescribed analgesic (pain killers) are not necessary. You may use Advil, Tylenol, etc. for pain relief. 2. You may shower or take tub baths. 3. If sutures are used, they will dissolve in 7-14 days. 4. You should call the office if there is excessive bleeding, swelling, fever, chills, sweats, or difficulty walking. 5. Biopsy results will be available in 7-10 days. If you have not heard your results in 2 weeks please contact your physician. Vitamin A&D ointment as barrier cream documented in this encounter [facility] 06-03-2022 History of Presen t illness Narrative Justine Proctor is a 67 year old female who presents today for a vulvar biopsy. Indication: persistent pruritis. UNIVERSAL PROTOCOL / SAFETY CHECKLIST Procedure to be Performed: Vulvar Biopsy Sign In: A Moment of CARE was completed. Personnel directly involved with the procedure wore the appropriate PPE (Personal Protective Equipment). Patient/Surrogate Stated/Verified: PATIENT VERIFIED(optional for EMERGENT procedures): Patient name, Date of , Relevant allergies, and The intended procedure Time Out Communication: Intended patient and procedure match the source documents. Consent documented and matches the intended procedure. Sign Out: SIGN OUT (optional for EMERGENT procedures): All specimen containers correctly labeled. All instruments, equipment, possible retained foreign bodies accounted for. Post-procedure follow-up management communicated and Plan of Care Visit completed when applicable. PROCEDURE NOTE: GROSS LESIONS: No BIOPSY: Area was cleansed with betadine and anesthetized with 3mL 1% lidocaine with 1:100,000 epi. 4mm Tara punch used to biopsy region. HEMOSTASIS: Obtained with silver nitrate and pressure Procedure Summary: Patient tolerated procedure well. ASSESSMENT: Lichen sclerosus PLAN: Specimens labeled and sent to Pathology. Will notify patient of results in 1-2 weeks. Post-procedure instructions reviewed and written material given to the patient. Rx clobetasol ointment given & use reviewed Michelle Dick MD documented in this encounter [facility] 05-27-2022 Note HNO ID: [id number] Author: Michelle Dick MD Service: ? 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 Justine is a 67 year old No obstetric history on file. who presents for an annual gynecologic exam. Patient had some yellow discharge AND lower vaginal itching. This seems to have resolved after 5-6 days. She does report h/o lichen sclerosus. She isn't using any ointments or creams for it. 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 Postmenopausal: Yes HRT use: No. Last Pap: unsure - 2017 HPV: unsure - maybe 2017 History of abnormal pap: No Last mammogram: 2020 normal per patient History of abnormal mammogram: No OB History No obstetric history on file. 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 History Comments: Sexual Activity: Yes; Male Contraception: No contraception data on record PAST MEDICAL HISTORY Diagnosis Date Diabetes mellitus (HCC) Type II - diet controlled High blood pressure Lichen sclerosus PAST SURGICAL HISTORY Procedure Laterality Date DANDC, DIAG AND/OR THERAPEUTIC Menorrhagia - Anemia HYSTEROSCOPY ENDOMETRIAL ABLATION REMOVAL GALLBLADDER REVISE MEDIAN N/CARPAL TUNNEL SURG Right FAMILY HISTORY Problem Relation Age of Onset other (CLL) Brother Heart Brother SOCIAL HISTORY Social History Tobacco Use Smoking status: Never Smokeless tobacco: Never Vaping Use Vaping Use: Never used Substance Use Topics Alcohol use: Not Currently Drug use: Never REVIEW OF SYSTEMS Abdomen: No abdominal pain, nausea, vomiting, diarrhea, or constipation. No bloating, early satiety, indigestion, or increased flatulence. Bladder: No dysuria, gross hematuria, urinary frequency, urinary urgency, or incontinence Breast: No breast lumps, nipple d/c, overlying skin changes, redness or skin retraction Allergies and current medication updated:Yes EXAM: BP 160/80 Ht 5' 3 (1.60m) Wt 169 lb (76.7kg) BMI 29.94 kg/(m2). GENERAL: pleasant, female in no apparent distress BREAST: soft, non-tender, symmetric, no dominant mass, normal nipple-areolar complex, no lymphadenopathy, and no nipple discharge CHEST: Normal inspiratory effort ABDOMEN: soft, non-tender, and no masses PELVIC: external genitalia atrophic with some labia minora loss and pale areas, no vulvar lesions, no cervical lesions, normal appearing perineal body and perianal region BIMANUAL: uterus normal size, shape and consistency, no adnexal masses, and non-tender RECTOVAGINAL: rectovaginal exam negative for any masses or nodularity. NEURO: alert and oriented x3,exam grossly non-focal EXTREMITIES: normal ASSESSMENT/PLAN: 1) Health maintenance: Pap done with HPV. Mammogram ordered Nutrition, exercise and routine health maintenance exams reviewed. Colon cancer screening: declined 2) Follow up one year or sooner as needed 3) Vulvovaginal itching - vaginitis swab. Follow up for vulvar biopsy. Advised on vulvar hygiene. Michelle Dick MD [facility] 05-27-2022 Instructions Michelle Dick MD - 05/27/2022 9:09 AM EDT Minimizing irritation of the vulva (area around the vagina) Wear white cotton underwear. Avoid synthetic fabrics and tight clothing. Sleep wearing shorts or pajama bottoms without underwear. Shower as soon as possible after exercise. Avoid clothing detergents and soaps with perfumes or dyes. Use warm (not hot) water to wash the vulva and if you use soap use a product designed for sensitive skin (like Dove or Cetaphil). Do not douche or use creams/powders in the vulvar area unless instructed by your physician. If you must douche, use only plain warm water. Make sure the vulva is dry before dressing by patting dry with a towel. Avoid vigorous rubbing with the towel. You may want to use the blow dryer (on the cool setting only!) on the vulva. The most important way to let your body heal is by avoiding scratching. Many patients find it difficult to avoid scratching at night when they are most aware of the itchiness. You can try taking Benadryl just before bedtime. Some women find it helpful to wear cotton gloves to bed to avoid scratching at night. 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 Justine is a 67 year old No obstetric history on file. who presents for an annual gynecologic exam. Patient had some yellow discharge & lower vaginal itching. This seems to have resolved after 5-6 days. She does report h/o lichen sclerosus. She isn't using any ointments or creams for it. 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 Postmenopausal: Yes HRT use: No. Last Pap: unsure - maybe 2017 HPV: unsure - maybe 2017 History of abnormal pap: No Last mammogram: 2020 normal per patient History of abnormal mammogram: No OB History No obstetric history on file. 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 History Comments: Sexual Activity: Yes; Male Contraception: No contraception data on record PAST MEDICAL HISTORY Diagnosis Date Diabetes mellitus (HCC) Type II - diet controlled High blood pressure Lichen sclerosus PAST SURGICAL HISTORY Procedure Laterality Date D&C, DIAG AND/OR THERAPEUTIC Menorrhagia - Anemia HYSTEROSCOPY ENDOMETRIAL ABLATION REMOVAL GALLBLADDER REVISE MEDIAN N/CARPAL TUNNEL SURG Right FAMILY HISTORY Problem Relation Age of Onset other (CLL) Brother Heart Brother SOCIAL HISTORY Social History Tobacco Use Smoking status: Never Smokeless tobacco: Never Vaping Use Vaping Use: Never used Substance Use Topics Alcohol use: Not Currently Drug use: Never REVIEW OF SYSTEMS Abdomen: No abdominal pain, nausea, vomiting, diarrhea, or constipation. No bloating, early satiety, indigestion, or increased flatulence. Bladder: No dysuria, gross hematuria, urinary frequency, urinary urgency, or incontinence Breast: No breast lumps, nipple d/c, overlying skin changes, redness or skin retraction Allergies and current medication updated:Yes EXAM: BP 160/80 Ht 5' 3 (1.60m) Wt 169 lb (76.7kg) BMI 29.94 kg/(m^2). GENERAL: pleasant, female in no apparent distress BREAST: soft, non-tender, symmetric, no dominant mass, normal nipple-areolar complex, no lymphadenopathy, and no nipple discharge CHEST: Normal inspiratory effort ABDOMEN: soft, non-tender, and no masses PELVIC: external genitalia atrophic with some labia minora loss and pale areas, no vulvar lesions, no cervical lesions, normal appearing perineal body and perianal region BIMANUAL: uterus normal size, shape and consistency, no adnexal masses, and non-tender RECTOVAGINAL: rectovaginal exam negative for any masses or nodularity. NEURO: alert and oriented x3,exam grossly non-focal EXTREMITIES: normal ASSESSMENT/PLAN: 1) Health maintenance: Pap done with HPV. Mammogram ordered Nutrition, exercise and routine health maintenance exams reviewed. Colon cancer screening: declined 2) Follow up one year or sooner as needed 3) Vulvovaginal itching - vaginitis swab. Follow up for vulvar biopsy. Advised on vulvar hygiene. Michelle Dick MD documented in this encounter [facility] Diagnosis Vulvar itching- Primary Pruritus of genital organs [facility] Diagnosis Blister of vulva without infection, initial encounter- Primary [facility] [place] [facility]* Diagnosis Inclusion cyst of vulva- Primary Other specified noninflammatory disorder of vulva and perineum Lichen sclerosus et atrophicus Circumscribed scleroderma [facility] Diagnostic Procedure Only (Routine) - Pending Review Specialty Diagnoses / Procedures Referred By Contac t Referred To Contact [facility] Diagnoses Encounter for screening mammogram for malignant neoplasm of breast Procedures [facility] SCREENING SCREENING MAMMOGRAPHY BI 2-VIEW BREAST INC Michelle Sherman MD [address] [place] [address] [facility] [address] [place] [address] Referral ID Status Reason Start Date Expiration Date Visits Requested Visits Authorized [id number] Pending Review Auto-Generat ed Referral 05/27/2022 06/26/2023 1 1 [facility] Summary Purpose Family History No Family History Records Found Advance Directives No Advanced Directives Records Found Additional Source Comments Source Comments (unrecognize d section and content) In the event this informatio n is protected by the Federal Confidentiality of Alcohol and Drug Abuse Patient Records regulations: The Federal rules restrict any use of the information to criminally investigate or prosecute any alcohol or drug abuse patient.[facility] the event this information is protected by the Federal Confidentiality of Alcohol and Drug Abuse Patient Records regulations: The Federal rules restrict any use of the information to criminally investigate or prosecute any alcohol or drug abuse patient.[facility] the event this information is protected by the Federal Confidentiality of Alcohol and Drug Abuse Patient Records regulations: The Federal rules restrict any use of the information to criminally investigate or prosecute any alcohol or drug abuse patient.[facility] System[facility] the event this information is protected by the Federal Confidentiality of Alcohol and Drug Abuse Patient Records regulations: The Federal rules restrict any use of the information to criminally investigate or prosecute any alcohol or drug abuse patient.[facility] System[facility] the event this information is protected by the Federal Confidentiality of Alcohol and Drug Abuse Patient Records regulations: The Federal rules restrict any use of the information to criminally investigate or prosecute any alcohol or drug abuse patient.[facility] Reason for Visit (unrecogniz ed section and content) Reason Comments Vulvar Biopsy Reason Comments Patient Question Reason Comments Vaginal Problem Vulvar bump Care Teams (unrecognized sec tion and content) Financial Retirement Plan Specialist Relationship Specialty Start Date End Date Yashira Yancey MD [address] [place], [place] [address] PCP - General Family Medicine 08/13/21 Financial Retirement Plan Specialist Relationship Specialty Start Date End Date Yashira Yancey MD [address] [facility] [place] [place] [address] PCP - General Family Medicine 08/13/21 Financial Retirement Plan Specialist Relationship Specialty Start Date End Date Yashira Yancey MD [address] [place], [place] [id number] PCP - General Family Medicine 08/13/21 Financial Retirement Plan Specialist Relationship Specialty Start Date End Date Yashira Yancey MD [address] [place], [place] [id number] PCP - General Family Medicine 08/13/21 INFORMATION SOURCE (unrecogn ized section and content) FOR RECORDS PERTAINING TO PATIENTS WHO ARE OR HAVE BEEN ENROLLED IN A CHEMICAL DEPENDENCY/SUBSTANCEABUSE PROGRAM, SOME INFORMATION MAY BE OMITTED. This clinical summary was aggregated from multiple sources. Caution should be exercised in using it in the provision of clinical care. This summary normalizes information from multiple sources, and as a consequence, information in this document may materially change the coding, format and clinical context of patient data. In addition, data may be omitted in some cases. CLINICAL DECISIONS SHOULD BE BASED ON THE PRIMARY CLINICAL RECORDS. [facility]. provides no warranty or guarantee of the accuracy or completeness of information in this document.
== END | disposition home or self-care (01) ==
LOC: LABSPEC 13:36
PROVIDERS: PCP Internal Medicine; Referring Provider Physician Assistant; Visit Provider Physician Assistant
DX: R68.89 Other general symptoms and signs (principal); J06.9 Acute upper respiratory infection, unspecified
CPT/HCPCS: 87502; 87635

== ENCOUNTER → 2023-09-12 | Outpatient (CLI) | payer MEDICARE, OTHER, SELFPAY ==
[2023-09-12 12:33] LABS: Hemoglobin A1c 8.4 % (3.8-5.6)
[2023-09-12 12:34] LABS: ALB/GLOB Ratio 1.1 RATIO (0.9-2.4); AST(SGOT) 15 U/L (15-37); Alanine Aminotransfer ALT/SGPT 20 U/L (13-56); Albumin, Serum 3.8 g/dL (3.2-5.0); Alkaline Phosphatase 80 U/L (45-117); Anion Gap 8 (5-15); BUN 12 mg/dL (7-18); BUN/Creat Ratio 9.9 RATIO (10-20); Calcium,Total 9.1 mg/dL (8.5-10.1); Chloride 102 mmol/L (98-107); Cholesterol 177 mg/dL (200); Creatinine, Serum 1.21 mg/dL (0.55-1.02); EST Glomerular Filtration Rate 47 mL/min (>60); Est Glom Filt Rate - Afr Amer 57 mL/min (>60); Globulin 3.4 g/dL (2.2-4.2); Glucose 223 mg/dL (74-106); High Density Lipoprotein 55 mg/dL; Potassium 4.1 mmol/L (3.5-5.1); Protein, Total 7.2 g/dL (6.4-8.2); Sodium Level 135 mmol/L (136-145); Thyroid Stim Hormone (TSH) 4.33 uIU/mL (0.358-3.74); Triglycerides 164 mg/dL; Uric Acid 4.6 mg/dL (2.6-6.0); Very Low Density Lipoprotein 33 mg/dL (5-40)
== END | disposition home or self-care (01) ==
LOC: BIMLAB 09:02
PROVIDERS: PCP Internal Medicine; Referring Provider Internal Medicine; Visit Provider Internal Medicine
DX: I10 Essential (primary) hypertension (principal); E11.9 Type 2 diabetes mellitus without complications; E78.5 Hyperlipidemia, unspecified; M10.9 Gout, unspecified
CPT/HCPCS: 36415; 80053; 80061; 83036; 84443; 84550

== ENCOUNTER → 2023-09-21 | Outpatient (CLI) | payer MEDICARE, OTHER, SELFPAY ==
[2023-09-21 16:42] LABS: Absolute Lymphocyte Count 2.21 X10^3/uL (0.83-4.51); Absolute Neutrophil Count 5.8 X10^3/uL (2.0-7.7); Basophil# 0.09 X10^3/uL; Eosinophil# 0.12 X10^3/uL; Eosinophils% 1.4 % (0-5); Hematocrit 40.4 % (37-47); Hemoglobin 13.8 g/dL (12.0-15.0); Lymphocyte # 2.21 X10^3/ul (0.83-4.51); Lymphocyte % 24.9 % (19-41); Mean Corp Hgb Conc 34.2 g/dL (32-36); Mean Corpuscular Volume 82.1 fL (81-99); Mean Platelet Vol. 11.3 fl (6.2-12.0); Monocyte% 6.8 % (0-10); NRBC Flagged by Analyzer 0 % (0-5); Neutrophil # 5.82 X10^3/uL (2.7-7.7); Neutrophil % 65.4 % (47-70); Platelet Count 368 K/mm3 (150-450); RBC Distribution Width CV 12.2 % (11.6-14.6); RBC Distribution Width SD 36.2 fl (35.1-43.9); Red Blood Count 4.92 M/mm3 (4.2-5.4); White Blood Count 8.9 K/mm3 (4.4-11.0)
[2023-09-21 16:57] LABS: ALB/GLOB Ratio 1.1 RATIO (0.9-2.4); AST(SGOT) 21 U/L (15-37); Alanine Aminotransfer ALT/SGPT 26 U/L (13-56); Alkaline Phosphatase 81 U/L (45-117); Anion Gap 11 (5-15); BUN 13 mg/dL (7-18); BUN/Creat Ratio 17.2 RATIO (10-20); Calcium,Total 9.7 mg/dL (8.5-10.1); Chloride 95 mmol/L (98-107); Creatinine, Serum 0.76 mg/dL (0.55-1.02); EST Glomerular Filtration Rate 81 mL/min (>60); Est Glom Filt Rate - Afr Amer 98 mL/min (>60); Globulin 3.7 g/dL (2.2-4.2); Glucose 138 mg/dL (74-106); Protein, Total 7.7 g/dL (6.4-8.2); Sodium Level 129 mmol/L (136-145)
== END | disposition home or self-care (01) ==
LOC: BIMLAB 14:10
PROVIDERS: PCP Internal Medicine; Referring Provider Internal Medicine; Visit Provider Internal Medicine
DX: I10 Essential (primary) hypertension (principal); E11.9 Type 2 diabetes mellitus without complications
CPT/HCPCS: 36415; 80053; 85025

== ENCOUNTER → 2024-04-25 | Outpatient (CLI) | payer MEDICARE, OTHER, SELFPAY ==
[2024-04-25 16:47] LABS: Absolute Lymphocyte Count 2.06 X10^3/uL (0.83-4.51); Absolute Neutrophil Count 5.8 X10^3/uL (2.0-7.7); Basophil# 0.08 X10^3/uL; Basophil% 0.9 % (0-1); Eosinophils% 2.3 % (0-5); Hematocrit 41.1 % (37-47); Hemoglobin 13.8 g/dL (12.0-15.0); Lymphocyte # 2.06 X10^3/ul (0.83-4.51); Lymphocyte % 23.7 % (19-41); Mean Corp Hgb Conc 33.6 g/dL (32-36); Mean Corpuscular Hgb 27.9 pg (27.0-32.0); Mean Platelet Vol. 10.9 fl (6.2-12.0); Monocyte% 5.7 % (0-10); NRBC Flagged by Analyzer 0 % (0-5); Neutrophil # 5.83 X10^3/uL (2.7-7.7); Neutrophil % 66.9 % (47-70); Platelet Count 387 K/mm3 (150-450); Red Blood Count 4.95 M/mm3 (4.2-5.4); White Blood Count 8.7 K/mm3 (4.4-11.0)
[2024-04-25 17:07] LABS: Erythrocyte Sedimentation Rate 23 mm/hr (0-30)
[2024-04-25 18:09] LABS: ALB/GLOB Ratio 1.5 RATIO (0.9-2.4); AST(SGOT) 22 U/L (<=31); Alanine Aminotransfer ALT/SGPT 14 U/L (<=34); Albumin, Serum 4.5 g/dL (3.4-4.8); Alkaline Phosphatase 87 U/L (35-104); Anion Gap 14 (5-15); BUN 11 mg/dL (4-19); BUN/Creat Ratio 18.3 RATIO (10-20); Carbon Dioxide 21.8 mmol/L (21.0-32.0); Chloride 100 mmol/L (98-108); Creatinine, Serum 0.62 mg/dL (0.70-1.20); EST Glomerular Filtration Rate 97 (>60); Glucose 126 mg/dL (70-99); Potassium 4.1 mmol/L (3.3-5.1); Protein, Total 7.5 g/dL (5.9-8.4); Sodium Level 136 mmol/L (133-145); Total Bilirubin 0.27 mg/dL (0.00-1.30)
[2024-04-25 18:20] LABS: CRP 3.39 mg/L (0.0-3.0); Rheumatoid Factor < 10.0 IU/mL (<15)
[2024-04-27 10:08] LABS: ANTINUCLEAR ANTIBODIES DIRECT Negative (Negative)
[2024-04-27 11:09] LABS: CCP IgG Antibodies 5 units (0-19)
== END | disposition home or self-care (01) ==
LOC: BIMLAB 15:04
PROVIDERS: PCP Internal Medicine; Referring Provider Internal Medicine; Visit Provider Internal Medicine
DX: E03.9 Hypothyroidism, unspecified (principal); M19.90 Unspecified osteoarthritis, unspecified site; E78.5 Hyperlipidemia, unspecified
CPT/HCPCS: 36415; 80053; 84443; 85025; 85652; 86038; 86140; 86200; 86225; 86235; 86431

== ENCOUNTER → 2024-11-08 | Outpatient (CLI) | payer MEDICARE, OTHER, SELFPAY ==
[2024-11-08 18:06] LABS: Creatinine, Urine (random) 63.10 mg/dL (28.00-217.00); Microalbumin,Random Urine < 12.0 mg/L (<20 mg/L)
[2024-11-08 18:19] LABS: AST(SGOT) 19 U/L (<=31); Alanine Aminotransfer ALT/SGPT 15 U/L (<=34); Albumin, Serum 4.1 g/dL (3.4-4.8); Alkaline Phosphatase 96 U/L (35-104); Anion Gap 13 (5-15); BUN 16 mg/dL (4-19); BUN/Creat Ratio 21.8 RATIO (10-20); Calcium,Total 9.1 mg/dL (7.6-11.0); Carbon Dioxide 23.6 mmol/L (21.0-32.0); Chloride 100 mmol/L (98-108); Cholesterol 135 mg/dL (<=200); Globulin 3.0 g/dL (2.2-4.2); Glucose 103 mg/dL (70-99); Low Density Lipoprotein Calc. 48 mg/dL; Potassium 4.2 mmol/L (3.3-5.1); Triglycerides 218 mg/dL; Very Low Density Lipoprotein 44 mg/dL (5-40); cholesterol:hdl ratio screen 3.08
== END | disposition home or self-care (01) ==
LOC: MTLAB 15:25
PROVIDERS: PCP Internal Medicine; Referring Provider Internal Medicine; Visit Provider Internal Medicine
DX: E03.9 Hypothyroidism, unspecified (principal); E78.5 Hyperlipidemia, unspecified; F41.9 Anxiety disorder, unspecified; F32.A Depression, unspecified; G56.00 Carpal tunnel syndrome, unspecified upper limb
CPT/HCPCS: 36415; 80053; 80061; 82043; 82570; 84443